=== PATIENT | female | born 1975 | race Caucasian/White ===

== ENCOUNTER 2020-11-26 11:36 | Emergency (ER) | payer OTHER ==
--- NOTE | 2020-11-26 11:44 | EDM.PDOC ---
ED HPI GENERAL MEDICAL PROBLEM - General Chief Complaint: Lower Extremity Injury/Pain Stated Complaint: LEFT FOOT INJURY 11/26/20 Time Seen by Provider: 11/26/20 11:44 Source of Information: Reports: Patient History Limitations: Reports: No Limitations - History of Present Illness INITIAL COMMENTS - FREE TEXT/NARRATIVE: left foot injury - occurred this morning after a log fell on her foot. no numbness or tingling reports pain 4 out of 10 Onset: Sudden Duration: Hour(s): (2) Location: Reports: Lower Extremity, Left Quality: Reports: Sharp Severity: Moderate Improves with: Reports: Cold Therapy, Immobilization Worsens with: Reports: Movement Review of Systems - Review of Systems Review Of Systems: See Below Constitutional: Reports: No Symptoms Eyes: Reports: No Symptoms Ears: Reports: No Symptoms Nose: Reports: No Symptoms Respiratory: Reports: No Symptoms Cardiovascular: Reports: No Symptoms GI/Abdominal: Reports: No Symptoms ED EXAM, GENERAL - Physical Exam Exam: See Below Exam Limited By: No Limitations General Appearance: Alert, WD/WN Eye Exam: Bilateral Eye: EOMI Respiratory/Chest: No Respiratory Distress Cardiovascular: Regular Rate, Rhythm Extremities: Other (left foot pain and TTP over the top - no deformity, no limited ROM) Course - Vital Signs Last Recorded V/S: Last Vital Signs Temp 36.5 C 11/26/20 11:47 Pulse 73 11/26/20 11:47 Resp 16 11/26/20 11:47 BP 132/95 H 11/26/20 11:47 Pulse Ox 100 11/26/20 11:47 - Orders/Labs/Meds Orders: Active Orders 24 hr Category Date Time Status Foot Comp Min 3V Lt [CR] Stat Exams 11/26/20 11:43 Taken - Re-Assessments/Exams Free Text/Narrative Re-Assessment/Exam: xrays foot - no e/o fracture Departure - Departure Time of Disposition: 12:05 Disposition: Home, Self-Care 01 Condition: Good Clinical Impression: Contusion of left foot, initial encounter - Discharge Information *PRESCRIPTION DRUG MONITORING PROGRAM REVIEWED*: Not Applicable *COPY OF PRESCRIPTION DRUG MONITORING REPORT IN PATIENT LIZA: Not Applicable Instructions: Foot Contusion Referrals: PCP,None [Primary Care Provider] - Forms: ED Department Discharge Sepsis Event Note (ED) - Focused Exam Vital Signs: Vital Signs Temp Pulse Resp BP Pulse Ox 11/26/20 11:47 36.5 C 73 16 132/95 H 100 - Problem List & Annotations (1) Contusion of left foot, initial encounter SNOMED Code(s): 02013932, [id number] Code(s): S90.32XA - CONTUSION OF LEFT FOOT, INITIAL ENCOUNTER Status: Acute Priority: Low Current Visit: Yes - Problem List Review Problem List Initiated/Reviewed/Updated: Yes - My Orders Last 24 Hours: My Active Orders 11/26/20 11:43 Foot Comp Min 3V Lt [CR] Stat - Assessment/Plan Last 24 Hours: My Active Orders 11/26/20 11:43 Foot Comp Min 3V Lt [CR] Stat Plan: - take tylenol and ibuprofen for pain control - ice the affected area - keep acewrap to help with discomfort - elevation - follow up with your PCP as needed
--- NOTE | 2020-11-28 07:53 | CR ---
Date of Service: 11/26/20 Clinical Data: a log fell on her foot LEFT FOOT: No acute fracture or dislocation. No lytic or blastic bone lesions. There is a small posterior calcaneal spur. [id number] [facility]
== END 2020-11-26 12:08 | disposition home or self-care (01) ==
LOC: LB.ED 11:36
DX: S90.32XA Contusion of left foot, initial encounter (principal); W18.39XA Other fall on same level, initial encounter
CPT/HCPCS: 73630-LT; 99283; 99283-25